=== PATIENT | female | born 1975 ===

== ENCOUNTER → 2018-03-04 | Outpatient (CLI) | payer BC | LOC: LAB SHORT 11:15 → LAB 11:15 | PROVIDERS: Nurse Practitioner Family | DX: Z01.419 Encounter for gynecological examination (general) (routine) without abnormal findings (principal) | CPT/HCPCS: G0145 ==

== ENCOUNTER → 2023-01-19 | Outpatient (CLI) | payer BC ==
[2023-01-23 15:11] LABS: HPV 16 Negative (Negative); HPV 18 Negative (Negative); HPV OTHER HR TYPES Negative (Negative)
== END ==
LOC: LAB 12:52 → LAB SHORT 12:52
PROVIDERS: Advanced Practice Midwife
DX: Z01.419 Encounter for gynecological examination (general) (routine) without abnormal findings (principal)
CPT/HCPCS: 87624; G0145